=== PATIENT | male | born 1985 | race African-American/Black ===

== ENCOUNTER 2017-12-06 14:02 | Emergency (ER) | payer SELFPAY ==
[2017-12-06] MEDS ORDERED: diphenhydrAMINE 25 MG Cap PO ONE (14:35)
[2017-12-06] MEDS: Ketorolac 30 MG/ML SDV IM ONE (14:50)
[2017-12-06] MEDS: diphenhydrAMINE 50 MG Cap PO ONE (14:53)
--- NOTE | 2017-12-07 14:31 | ER ---
DATE SEEN: 12/06/2017 HISTORY OF PRESENT ILLNESS: The patient is a pleasant 32-year-old man who works as [employer] and when he got home today he kneeled and strained his back. He has marked pain. He called the ambulance and was transferred to the hospital because of back pain. No previous history of back pain, back strain, or back injury. He is otherwise healthy. No diabetes, heart disease, high blood pressure, or other serious illnesses. MEDICATIONS: He is not taking any medicine. ALLERGIES: No allergies. REVIEW OF SYSTEMS: Negative. PHYSICAL EXAMINATION: VITAL SIGNS: Blood pressure 130/90, heart rate 77 and regular, respirations 24, oxygen saturation 100%, temperature 36.6 degrees centigrade. The patient is 79.3 kg. GENERAL: This young healthy-looking male is mildly distressed, is lying on his sides, and groans when he moves around. Notes his middle back is painful. HEENT: PERRLA intact. Pupils appropriate. conjugate response. TMs negative. Pharynx without abnormality. Mucosa normal. LUNGS: Clear without rales, rhonchi, or wheezes. HEART: S1, S2. No murmur. NECK: No cervical adenopathy or masses in the neck. ABDOMEN: Nontender. No guarding. No abdominal discomfort. No CVA percussion tenderness. BACK: Spinous process tenderness noted at T8 and T9 with mild paraspinal muscle spasm with a loud voice of pain evoked with paraspinal pressure in these 2 areas bilaterally. EXTREMITIES: Lower extremities without abnormality. Straight leg is negative. Deep tendon reflexes normal in upper and lower extremities. IMAGING DATA: X-ray of the back did not reveal a crush compression fracture of thoracic spine. ASSESSMENT: Thoracic spine ligamentous strain with paraspinal spasm. This markedly 70% improved with Toradol shot of 60 mg IM. The patient did not want narcotics. He does not want narcotics. Thoracic paraspinal muscle strain. The patient has been advised by [employer]. Suggest walking as the best modality from meta 160,000 patient study. Consequently, he will use ibuprofen and walking and ice. I did not Rx Tylenol - that has proven not to be successful with back pain. Follow up with his physician if not improved. He will return to work without restriction as he has requested to do the same and I think that is appropriate. We discussed the advantage of return to work because he gets to use the muscles that are going to spasm and gradually progressively increased activity as tolerated. I also went through [id number] exercises with flexion he can flex to about 120 degrees to 110 degrees and results with thoracic discomfort. Lateral rotation is normal. Lateral flexion normal. Hyperextension is normal. PLAN: Thoracic paraspinal muscle strain. Reassured. Gradually progressively increase his activity as tolerated. Encouraged to perform walking as that is the best therapeutic intervention for back strain. The fact it is not his lower back suggests it is not disk disease. No suggestion of any disk involvement on clinical examination. The patient was seen on arrival. He arrives at about 1500 hours. /[id number] KOBE/CHINO TURPIN
--- NOTE | 2017-12-08 08:10 | CR ---
INDICATION: T8-9 thoracic vertebral pain, sudden onset. THORACIC SPINE: Four images of the thoracic spine were obtained in frontal and lateral projections, revealing a dextroconcave scoliosis at the upper thoracic spine. A minimal dextroconcave scoliosis is noted in the mid thoracic spine on one of the AP views. There are hypertrophic changes noted anteriorly off the T9-10 vertebral bodies. The pedicles appear to be intact. Bone density appeared to be normal. IMPRESSION: 1. Minimal scoliosis. 2. Mild osteoarthritis. If occult bony abnormality is suspected clinically, nuclear bone imaging, CT, or MRI may be of further diagnostic benefit. MTDD
== END 2017-12-06 15:42 | disposition home or self-care (01) ==
LOC: FB.ED 14:02
DX: S29.012A Strain of muscle and tendon of back wall of thorax, initial encounter (principal); X50.9XXA Other and unspecified overexertion or strenuous movements or postures, initial encounter
CPT/HCPCS: 72072; 96372; 99283; J1885